=== PATIENT | female | born 1970 | race Caucasian/White ===

== ENCOUNTER 2021-10-08 05:45 | Day surgery (SDC) | payer MEDICAID ==
[~2021-10-08] VITALS: Ht 162.6 cm; Wt 96.6 kg
[2021-10-08 06:10] LABS: HCG,QUAL RESULT NEGATIVE (NEGATIVE)
[2021-10-08] MEDS ORDERED: MIDAZOLAM HCL 5 MG/5 ML VIAL ONE (07:17)
[2021-10-08] MEDS ORDERED: SIMETHICONE 40 MG/0.6 ML ML ONE (07:17)
[2021-10-08] MEDS ORDERED: MEPERIDINE 100 MG INJ. 100 MG/ML VIAL ONE (07:17)
[2021-10-08] MEDS ORDERED: BENZOCAINE 20% 0.5mL UD SPRAY MM ONE (07:19)
[2021-10-08 12:50] VITALS: BP_SYST 103
== END 2021-10-08 10:45 | disposition home or self-care (01) ==
LOC: SMU 05:45 → SDS 05:45
PROVIDERS: ATTEND Internal Medicine
DX: R19.4 Change in bowel habit (principal); R19.5 Other fecal abnormalities; K21.9 Gastro-esophageal reflux disease without esophagitis; K52.9 Noninfective gastroenteritis and colitis, unspecified; K29.50 Unspecified chronic gastritis without bleeding; Z98.84 Bariatric surgery status; K44.9 Diaphragmatic hernia without obstruction or gangrene; K64.8 Other hemorrhoids; J45.909 Unspecified asthma, uncomplicated; I10 Essential (primary) hypertension; Z90.3 Acquired absence of stomach [part of]; Z98.890 Other specified postprocedural states; Z79.899 Other long term (current) drug therapy; Z20.822 Contact with and (suspected) exposure to COVID-19
CPT/HCPCS: 36415 ×2; 43239; 45380; 84703; 87426; 87635; 88305; 88312; 88313; 99152; 99153; G0378; J2175; J2250; U0003